=== PATIENT | male | born 2000 | race Caucasian/White ===

== ENCOUNTER 2020-02-05 19:42 | Emergency (ER) | payer SELFPAY ==
[~2020-02-05] VITALS: Ht 175.2 cm; Wt 77.1 kg
[~2020-02-05 19:42] MED LIST: CEPHALEXIN500 M1 PO; MOTRIN CHI100 MG/52 PO; Motrin,Rufen800 MG PO; NAPROSYN500 MG PO; NORCO 5-325 TA1 EACH PO; PENICILLIN VK500 MG PO; ULTRAM50 MG PO; ZOFRAN ODT4 MG SL
== END 2020-02-05 20:39 | disposition short-term general hospital (02) ==
LOC: ED 19:42
DX: S01.81XA Laceration without foreign body of other part of head, initial encounter (principal); W45.8XXA Other foreign body or object entering through skin, initial encounter; Y93.89 Activity, other specified; Y92.89 Other specified places as the place of occurrence of the external cause; Y99.8 Other external cause status

== ENCOUNTER → 2020-05-30 | Outpatient (CLI) | payer SELFPAY | END | disposition home or self-care (01) | LOC: COVID19 13:27 | PROVIDERS: ATTEND Internal Medicine | DX: Z20.828 Contact with and (suspected) exposure to other viral communicable diseases (principal) ==